=== PATIENT | male | born 1970 | race Caucasian/White ===

== ENCOUNTER → 2017-11-16 | Outpatient (CLI) | payer OTHER | LOC: M WUC 17:44 | DX: M25.541 Pain in joints of right hand (principal) | CPT/HCPCS: 73130 ==

== ENCOUNTER → 2020-07-10 | Outpatient (CLI) | payer OTHER ==
[~2020-07-10] MED LIST: ATOR1TAB21 PO; FAMO20TA PO; KP F1200 PO; LISI20TA33 PO; OMEP-221 PO; PURE500C5 PO; SILD100T7 PO
== END ==
LOC: M LABSMTC 12:02
PROVIDERS: ATTEND Anesthesiology
DX: Z01.812 Encounter for preprocedural laboratory examination (principal); Z20.822 Contact with and (suspected) exposure to COVID-19

== ENCOUNTER 2020-07-15 12:41 | Day surgery (SDC) | payer OTHER ==
[~2020-07-15] VITALS: Ht 180.3 cm; Wt 89.8 kg
[~2020-07-15 12:41] MED LIST changes: +NS 1,000 ML IV ONE
[2020-07-15] MEDS ORDERED: propofoL 200 MG/20 ML VIAL As Ordered ONE ×3 (13:51→15:13)
[2020-07-15] MEDS ORDERED: LIDOCAINE 2% 100MG/5ML SDV (FOR ANES.) As Ordered ONE (13:51)
[2020-07-15] MEDS ORDERED: fentaNYL 100 MCG/2 ML INJECTION (J3010) As Ordered ONE (13:51)
--- NOTE | 2020-07-15 15:04 | ROOR ---
Patient Name: Reagan Patricio Procedure Date: 07/15/2020 2:38 PM Date of : 1970 Age: 50 Room: [facility] Gender: Male Note Status: Finalized Procedure: Upper GI endoscopy Indications: Suspected esophageal reflux, Globus sensation Providers: Israel GONSALEZ MD Referring MD: CHRISTIAN DOWNEY MD Requesting Provider: Medicines: Monitored Anesthesia Care Complications: No immediate complications. Procedure: Pre-Anesthesia Assessment: - The heart rate, respiratory rate, oxygen saturations, blood pressure, adequacy of pulmonary ventilation, and response to care were monitored throughout the procedure. The Endoscope was introduced through the mouth, and advanced to the second part of duodenum. The upper GI endoscopy was accomplished without difficulty. The patient tolerated the procedure well. Findings: The examined esophagus was normal. The entire examined stomach was normal. Biopsies were taken with a cold forceps for Helicobacter pylori testing. A few erosions without bleeding were found in the first portion of the duodenum and in the second portion of the duodenum. Biopsies were taken with a cold forceps for histology. The exam was otherwise without abnormality. Impression: - Normal esophagus. - Normal stomach. Biopsied. - A few shallow duodenal erosions without bleeding. Biopsied. - The examination was otherwise normal. Recommendation: - Use Prilosec (omeprazole) 40 mg PO daily. - No ibuprofen, naproxen, or other non-steroidal anti-inflammatory drugs. Procedure Code(s): --- Professional --- 72570, Esophagogastroduodenoscopy, flexible, transoral; with biopsy, single or multiple Diagnosis Code(s): --- Professional --- F45.8, Other somatoform disorders K26.9, Duodenal ulcer, unspecified as acute or chronic, without hemorrhage or perforation CPT copyright 2019 [employer]. All rights reserved. The codes documented in this report are preliminary and upon peoplesoft financials review may be revised to meet current compliance requirements. Israel Gonsaelz MD Israel GONSALEZ MD 07/15/2020 3:04:21 PM Electronically signed by Israel GONSALEZ MD Number of Addenda: 0 Note Initiated On: 07/15/2020 2:38 PM Estimated Blood Loss: Estimated blood loss: none.
--- NOTE | 2020-07-15 15:19 | ROOR ---
Patient Name: Reagan Patricio Procedure Date: 07/15/2020 2:38 PM Date of : 1970 Age: 50 Room: [id number] Gender: Male Note Status: Finalized Procedure: Colonoscopy Indications: Colon cancer screening in patient with 1st-degree relative having advanced adenoma of the colon before age 60, Screening in patient at increased risk: Colorectal cancer in mother 60 or older Providers: Israel GONSALEZ MD Referring MD: CHRISTIAN DOWNEY MD Requesting Provider: Medicines: Monitored Anesthesia Care Complications: No immediate complications. Procedure: Pre-Anesthesia Assessment: - The heart rate, respiratory rate, oxygen saturations, blood pressure, adequacy of pulmonary ventilation, and response to care were monitored throughout the procedure. The Colonoscope was introduced through the anus and advanced to the terminal ileum, with identification of the appendiceal orifice and IC valve. The colonoscopy was performed without difficulty. The patient tolerated the procedure well. The quality of the bowel preparation was good. Findings: The perianal and digital rectal examinations were normal. A 5 mm polyp was found in the upper rectum. The polyp was sessile. The polyp was removed with a cold snare. Resection and retrieval were complete. Small Internal Hemorrhoids. The exam was otherwise without abnormality on direct and retroflexion views. Impression: - One 5 mm polyp in the rectum, removed with a cold snare. Resected and retrieved. - Small Internal Hemorrhoids. - The examination was otherwise normal on direct and retroflexion views. Recommendation: - Repeat colonoscopy in 5 years for surveillance. Procedure Code(s): --- Professional --- 14684, Colonoscopy, flexible; with removal of tumor(s), polyp(s), or other lesion(s) by snare technique Diagnosis Code(s): --- Professional --- K62.1, Rectal polyp Z83.71, Family history of colonic polyps Z80.0, Family history of malignant neoplasm of digestive organs CPT copyright 2019 [employer]. All rights reserved. The codes documented in this report are preliminary and upon project economist review may be revised to meet current compliance requirements. Israel Gonsalez MD Israel GONSALEZ MD 07/15/2020 3:19:08 PM Electronically signed by Israel GONSALEZ MD Number of Addenda: 0 Note Initiated On: 07/15/2020 2:38 PM Estimated Blood Loss: Estimated blood loss: none.
[2020-07-15 15:45] VITALS: BP 143/98
== END 2020-07-15 15:55 | disposition home or self-care (01) ==
LOC: M OPP 12:41
PROVIDERS: ATTEND Internal Medicine Gastroenterology
DX: Z12.11 Encounter for screening for malignant neoplasm of colon (principal); Z80.0 Family history of malignant neoplasm of digestive organs; Z83.71 Family history of colonic polyps; K62.1 Rectal polyp; K64.8 Other hemorrhoids; K25.9 Gastric ulcer, unspecified as acute or chronic, without hemorrhage or perforation; F45.8 Other somatoform disorders; Z79.899 Other long term (current) drug therapy
CPT/HCPCS: 43239; 45385; 88305; J3010

== ENCOUNTER → 2024-03-15 | Outpatient (CLI) | payer OTHER ==
[~2024-03-15] MED LIST changes: +ASCO500C3 PO; -NS 1,000 ML IV ONE; -OMEP-221 PO; +OMEP40CA5 PO; -PURE500C5 PO
[2024-03-15 12:14] LABS: ALBUMIN 3.5 G/DL (3.2-5.2); ALKALINE PHOSPHATASE 68 U/L (40-129); ALT/SGPT 45 U/L (7.0-40); AST/SGOT 41 U/L (<34); BILIRUBIN,TOTAL 0.6 MG/DL (0.3-1.2); BLOOD UREA NITROGEN 15 MG/DL (9-23); CALCIUM LEVEL 8.9 MG/DL (8.5-10.1); CARBON DIOXIDE LEVEL 28 MMOL/L (20-31); CHLORIDE LEVEL 104 MMOL/L (98-107); CHOLESTEROL LEVEL 173 MG/DL (<200); CHOLESTEROL RISK RATIO 2.32 (<5); CREATININE FOR GFR 0.95 MG/DL (0.70-1.30); GLOMERULAR FILTRATION RATE > 60.0 (>56); GLUCOSE, FASTING 99 MG/DL (60-100); HDL CHOLESTEROL 74.5 MG/DL (>40); LDL CHOLESTEROL 72.5 MG/DL (<100); NON-HDL-C 98.5 MG/DL; POTASSIUM SERUM 4.5 MMOL/L (3.5-5.1); SODIUM LEVEL 139 MMOL/L (136-145); TOTAL PROTEIN 7.2 G/DL (5.7-8.2); TRIGLYCERIDES LEVEL 130 MG/DL (<150)
== END ==
LOC: M WUC 09:04
PROVIDERS: ATTEND Internal Medicine
DX: E78.5 Hyperlipidemia, unspecified (principal)

== ENCOUNTER → 2025-03-16 | Outpatient (CLI) | payer OTHER ==
[2025-03-16 13:14] LABS: ALT/SGPT 41 U/L (7.0-40); AST/SGOT 35 U/L (<34); CALCIUM LEVEL 9.2 MG/DL (8.5-10.1); CARBON DIOXIDE LEVEL 30 MMOL/L (20-31); CHLORIDE LEVEL 100 MMOL/L (98-107); CHOLESTEROL LEVEL 185 MG/DL (<200); CHOLESTEROL RISK RATIO 2.43 (<5); CREATININE FOR GFR 0.98 MG/DL (0.70-1.30); GLOMERULAR FILTRATION RATE > 90.0 (>56); LDL CHOLESTEROL 88.6 MG/DL (<100); NON-HDL-C 109.0 MG/DL; POTASSIUM SERUM 4.6 MMOL/L (3.5-5.1); SODIUM LEVEL 137 MMOL/L (136-145); TRIGLYCERIDES LEVEL 102 MG/DL (<150)
== END ==
LOC: M WUC 08:47
PROVIDERS: ATTEND Internal Medicine
DX: E78.5 Hyperlipidemia, unspecified (principal)